=== PATIENT | female | born 1970 | race Caucasian/White ===

== ENCOUNTER 2021-04-06 21:39 | Emergency (ER) | payer OTHER, SELFPAY ==
--- NOTE | ~2021-04-06 | XR_ITS ---
EXAMINATION: XR chest 2V DATE: 04/07/2021 01:05 INDICATION: Left rib pain TECHNIQUE: PA and lateral views of the chest were obtained. COMPARISON: Chest radiograph dated 02/20/13 FINDINGS: The lungs remain clear with no focal airspace opacities, pulmonary edema, pleural effusion or pneumot horax. The cardiomediastinal silhouette is normal. Visualized bones and soft tissues are unremarkable . IMPRESSION: 1. No acute cardiopulmonary disease. Reviewed, dictated and finalized at location A.
[2021-04-06 22:11] VITALS: BP 127/84; PULSE 94; RESP 18; TEMP 36.6; O2SAT 98
[2021-04-06 22:29] LABS: Basophils Percent Auto 0.4 % (0.2-1.2); Eosinophils Absolute Auto 0.2 K/mm3 (0-0.3); Eosinophils Percent Auto 2.5 % (0-4.4); Hematocrit 40.9 % (37.0-47.0); Hemoglobin 13.3 g/dL (12.0-15.0); Immature Granulocyte Absolute 0.02 K/mm3 (0.00-0.031); Immature Granulocyte Percent A 0.3 % (0-0.5); Lymphocytes Absolute Auto 2.46 K/mm3 (0.9-3.2); Lymphocytes Percent Auto 35.8 % (18.3-44.2); Mean Corpuscular HGB Conc 32.5 g/dl (32-36); Mean Corpuscular Hemoglobin 27.4 pg (26-34); Mean Corpuscular Volume 84.3 fl (80-100); Mean Platelet Volume 9.2 fl (7.4-10.4); Monocytes Absolute Auto 0.3 K/mm3 (0.1-0.6); Monocytes Percent Auto 4.7 % (2.6-8.5); Neutrophils Absolute Auto 3.9 K/mm3 (1.3-6.7); Neutrophils Percent Auto 56.3 % (45.5-73.1); Platelet Count Result 324 k/mm3 (150-375); Red Blood Count 4.85 M/mm3 (4.2-5.4); Red Cell Distribution Width 12.9 % (11.5-14.5); White Blood Count 6.9 K/mm3 (4.5-10.0)
[2021-04-06 22:45] LABS: Alanine Aminotransferase 21 U/L (4-35); Albumin Level 4.4 g/dL (3.5-5.1); Alkaline Phosphatase 69 U/L (38-126); Anion Gap 10 mmol/L (8-16); Aspartate Amino Transferase 27 U/L (14-36); Bilirubin,Total 0.4 mg/dL (0.2-1.3); Blood Urea Nitrogen 16 mg/dL (7-17); Calcium 9.9 mg/dL (8.4-10.2); Carbon Dioxide 21 mmol/L (22-30); Chloride 109 mmol/L (98-107); Estimated CRCL calculation 75 ml/min; Estimated Glomerular Filt Rate > 60; Glucose 122 mg/dL (65-105); Lipase 53 U/L (23-300); Sodium 140 mmol/L (137-145)
[2021-04-07 00:01] VITALS: BP 105/75; PULSE 94; RESP 17; O2SAT 98
--- NOTE | 2021-04-07 00:33 | ED.BACK ---
HPI - Back Pain/Injury General Chief Complaint: Back Pain/Injury Stated Complaint: flank pain several days Time Seen by Provider: 04/07/21 00:06 Source: patient Mode of arrival: ambulatory Limitations: no limitations History of Present Illness HPI Narrative: Patient is a 51-year-old female complaining of left lower lateral rib pain, 5 out of 10, sharp, worse with movement and palpation that started 3 days ago. Patient denies any chest pain, shortness of breath, cough, abdominal pain, back pain, nausea, vomiting, fever or chills. Related Data Home Medications Medication Instructions Recorded Confirmed naproxen 500 mg tablet 500 mg PO BID 01/07/21 01/07/21 Allergies Allergy/AdvReac Type Severity Reaction Status Date / Time Sulfa (Sulfonamide Allergy Mild HIVES Verified 04/07/21 00:04 Antibiotics) sulfamethoxazole Allergy Mild HIVES Verified 04/07/21 00:04 trimethoprim Allergy Mild HIVES Verified 04/07/21 00:04 amoxicillin Allergy Unknown Unknown Verified 04/07/21 00:04 Penicillins Allergy Unknown HIVES Verified 04/07/21 00:04 codeine AdvReac Mild N/V Verified 04/07/21 00:04 CODEINE (Generic Allergy) Allergy Unknown Y Uncoded 04/07/21 00:04 Review of Systems Review of Systems: All systems reviewed & are unremarkable except as noted in HPI and below Constitutional: Constitutional: Denies body ache(s), Denies chills, Denies excessive sweating, Denies fatigue, Denies fever(s), Denies headache(s), Denies lethargy, Denies malaise, Denies weakness and Denies weight loss Eyes: Eyes: Denies blurry vision, Denies change in vision and Denies loss of vision ENT: Denies dizziness, Denies ear discharge, Denies headache(s), Denies lip swelling, Denies epistaxis, Denies nasal congestion, Denies neck pain, Denies throat swelling and Denies tongue swelling Cardiovascular: Cardiovascular: Denies chest pain, Denies chest pain at rest, Denies chest pain with activity, Denies diaphoresis, Denies rapid heart rate, Denies edema, Denies irregular heart rhythm, Denies lightheadedness, Denies palpitations, Denies dyspnea and Denies dyspnea on exertion Respiratory: Respiratory: Denies chest congestion, Denies cough, Denies hemoptysis, Denies dyspnea and Denies dyspnea on exertion Gastrointestinal: Gastrointestinal: Denies abdominal pain, Denies melena, Denies hematochezia, Denies diarrhea, Denies nausea, Denies vomiting and Denies hematemesis Musculoskeletal: Musculoskeletal: Denies abnormal gait, Denies deformity, Denies joint swelling, Denies limited range of motion, Denies neck pain and Denies numbness Neurologic: Denies Abnormal speech present, Denies abnormal gait, Denies confusion, Denies dizziness, Denies headache(s), Denies focal weakness, Denies loss of vision, Denies numbness, Denies Other visual disturbances, Denies Sensory deficit (Neuro) and Denies weakness Psychiatric: Psychiatric: Denies confusion, Denies depression, Denies auditory hallucinations, Denies homicidal ideation and Denies suicidal ideation Endocrine: Endocrine: Denies cold intolerance, Denies excessive sweating, Denies fatigue, Denies heat intolerance and Denies palpitations Hematologic/Lymphatic: Hematologic/Lymphatic: Denies easy bleeding and Denies easy bruising Allergic/Immunologic: Allergic/Immunologic: Denies lip swelling, Denies throat swelling and Denies tongue swelling PMFSH Family History Family History Other Family history of arthritis Social History Social History Smoking status: Never smoker Alcohol intake: never Gender identity (if verbalized by the patient): Female Comments Past medical history: None Family history: Noncontributory Social history: Non-smoker no EtOH or drug use Exam Const: General: cooperative, healthy appearing, comfortable, no acute distress, well developed, alert and awake; No confusion Orientation/conscio
[2021-04-07 00:37] LABS: Add Urine Microscopic? YES; Appearance Urine Cloudy (Clear); Bacteria Urine Trace /hpf; Bilirubin Urine Negative (Negative); Blood Urine Negative (Negative); Color Urine Yellow (Yellow); Glucose Urine UA Negative (Negative); Ketones Urine Negative (Negative); Leukocyte Esterase Ur Negative LEU/UL (Negative); Mucus Urine Rare /lpf; Nitrate Urine Negative (Negative); Protein Urine Negative (Negative); RBC Urine 0-2 /hpf (0-2); Specific Grav Ur 1.023 (1.001-1.035); Squamous Epithelial Cell Urine Few /hpf (Few); Urobilinogen Urine Negative mg/dL (<2.0); WBC Urine 0-3 /hpf
[2021-04-07 01:25] LABS: D Dimer < 0.22 ug/mL (<0.48)
[2021-04-07 01:49] VITALS: BP 116/71; PULSE 78; RESP 15; O2SAT 99
[2021-04-07 02:19] VITALS: BP 113/63; PULSE 84; RESP 17; O2SAT 100
== END 2021-04-07 02:21 | disposition home or self-care (01) ==
PROVIDERS: Emergency Provider Emergency Medicine; PCP Family Medicine Adolescent Medicine
DX: S29.011A Strain of muscle and tendon of front wall of thorax, initial encounter (principal); X58.XXXA Exposure to other specified factors, initial encounter
CPT/HCPCS: 36415; 71046; 80053; 81001; 83690; 85025; 85380; 99283

== ENCOUNTER → 2021-07-12 07:59 | Outpatient (CLI) | payer OTHER, SELFPAY ==
[2021-07-12 17:27] LABS: SARS-CoV-2 RNA PCR Negative
== END ==
PROVIDERS: PCP Family Medicine Adolescent Medicine; Visit Provider Orthopaedic Surgery
DX: Z01.812 Encounter for preprocedural laboratory examination (principal); Z20.822 Contact with and (suspected) exposure to COVID-19
CPT/HCPCS: C9803; U0003; U0005

== ENCOUNTER 2021-07-13 12:19 | Outpatient (CLI) | payer OTHER, SELFPAY ==
--- NOTE | ~2021-07-13 | XR_ITS ---
EXAMINATION: XR ankle LT min 3V, XR foot LT min 3V DATE: 07/13/2021 12:59 INDICATION: Left foot and ankle pain TECHNIQUE: 1. Anteroposterior, mortise, additional oblique and lateral view of the left ankle were obtained. 2. Dorsoplantar, two oblique and lateral views of the left foot were obtained. COMPARISON: None. FINDINGS: Alignment of the left foot and ankle is normal. No fracture or osteochondral lesion. Mild osteoarthri tis at the first metatarsophalangeal and multiple interphalangeal joints. Moderate-sized Achilles and plantar calcaneal spurs. No ankle joint effusion. The soft tissues are unremarkable. IMPRESSION: 1. No acute osseous abnormality. 2. Degenerative skeletal changes including Achilles and plantar calcaneal spurs and mild polyarticula r osteoarthritis in the forefoot. Reviewed, dictated and finalized at location A. IMPRESSION: 1. No acute osseous abnormality. 2. 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
== END 2021-07-13 12:20 | disposition home or self-care (01) ==
PROVIDERS: PCP Family Medicine Adolescent Medicine; Visit Provider Orthopaedic Surgery
DX: M77.32 Calcaneal spur, left foot (principal); M19.072 Primary osteoarthritis, left ankle and foot
CPT/HCPCS: 73610; 73630

== ENCOUNTER 2021-07-15 01:35 | Day surgery (SDC) | payer OTHER, SELFPAY ==
[2021-07-12 09:36] VITALS: BMI 36.3
[2021-07-15] VITALS (11 sets, daily range): BP systolic 109–121; BP diastolic 53–79; PULSE 88–100; RESP 12–16; TEMP 36.8; O2SAT 92–97; BMI 36.3
--- NOTE | ~2021-07-15 | XR_ITS ---
EXAMINATION: XR surgery orthopedic DATE: 07/15/2021 17:01 INDICATION: ORIF left patella TECHNIQUE: 5 fluoroscopic images of the patella were obtained during procedure performed by Dr. Jessica page. Radiologist was not present for the imaging or procedure. The amount of fluoroscopy time used during this procedure was 1.6 minutes. COMPARISON: None. FINDINGS: Comminuted patellar fracture which is fixed with a pair of cannulated lag screws through [facility] figure 8 cerclage wire which extends over the anterior surface of the patella. Alignment appears near-anatomic with minimal residual incongruity at the 2 fracture planes involving the articular cor palma no other fractures identified. Joint space at the medial and lateral compartments appear unremark able.. IMPRESSION: 1. Near-anatomic alignment post open reduction internal fixation of a comminuted intra-articular frac ture of the patella. See procedure note for further detail. Reviewed, dictated and finalized at location A. IMPRESSION: 1. Near-anatomic alignment post open reduction internal fixation of a comminute d intra-articular fracture of the patella. See procedure note for further lucio julian
--- NOTE | 2021-07-15 07:31 | WPDHPUPDATE1 ---
History and Physical Update Update Date/Time: 07/15/21 07:31 History and Physical has been reviewed, including an updated exam of the patient. There are NO changes in the patient's condition. Risks, benefits, and alternatives have been discussed and questions answered. Patient agrees to proceed with procedure.
[2021-07-15] MEDS: LACTATED RINGERS 1,000 ML 30 ML IV CONT ×2 (13:00→17:07)
[2021-07-15] MEDS: ACETAMINOPHEN 500 MG TABLET 1000 MG PO (13:03)
--- NOTE | 2021-07-15 13:05 | WPDANESEPPF ---
Anes - Initial Pre Proc Eval Procedure: Operation Date: 07/15/21 15:00 Proposed Procedures p Open Reduction Internal Fixation Left Patella - Cristopher Cunningham MD Date/Time: 07/15/21 13:05 Surgeon: Cristopher Cunningham MD Pre Op Diagnosis: left patella fx Patient Data Age: 51 Gender: F Height: 1.6 m Weight: 93 kg Allergies Allergy/AdvReac Type Severity Reaction Status Date / Time amoxicillin Allergy Severe Hives Verified 07/15/21 12:47 COVID-19 vaccine, AZD-1222 Allergy Severe Anaphylaxis Verified 07/15/21 12:47 (AstraZ erythromycin base Allergy Severe Hives Verified 07/15/21 12:47 Sulfa (Sulfonamide Allergy Mild HIVES Verified 07/15/21 12:47 Antibiotics) sulfamethoxazole Allergy Mild HIVES Verified 07/15/21 12:47 trimethoprim Allergy Mild HIVES Verified 07/15/21 12:47 Penicillins Allergy Unknown HIVES Verified 07/15/21 12:47 codeine AdvReac Mild N/V Verified 07/15/21 12:47 Home Medications Medication Instructions Recorded Confirmed Type naproxen sodium 220 mg tablet 220 mg PO BID PRN 07/12/21 07/15/21 History oxycodone-acetaminophen 5 mg-325 1 - 2 tablet PO Q4-6H PRN #40 07/12/21 07/15/21 Rx mg tablet tablet Patient hx anesthesia problems: none Family hx anesthesia problems: none Results Review: All pre-operative results and documents have been reviewed as part of the pre-operative evaluation. [facility] Past Medical History Medical History (Updated 07/15/21 @ 13:06 by Pablo Garcia MD) Hyperlipidemia Obesity Family History Family History Other Family history of arthritis Social History Social History Smoking status: Never smoker Alcohol intake: current Alcohol use details: RARE Substance use: never Substance use type: does not use Living arrangements: with family Gender identity (if verbalized by the patient): Female Spiritual care concerns: No Anes - Eval Final PreProcedure Day of Procedure 07/15/21 13:05 Patient weight: obese Heart: regular rate and rhythm Lungs: clear to auscultation Airway: Mallampati scale class II Neurological: alert and oriented Last oral intake: >/= 8 hours ASA classification: II Emergent: no Anesthetic plan: proceed Anesthesia type and monitoring: general LMA and standard monitoring Results Review: All pre-operative results and documents have been reviewed as part of the pre-operative evaluation. Informed Consent: The patient's anesthetic plan and its attendant risks and benefits were discussed with the patient/family/POA. Questions were solicited and answers provided to the satisfaction of the patient/family/POA.
[2021-07-15] MEDS: KETOROLAC 15 MG/ML VIAL (*BKC) IV PUSH (13:07)
--- NOTE | 2021-07-15 13:44 | WPDANESPNB ---
Anes - Peripheral Nerve Block Date/Time: 07/15/21 13:44 I have discussed with the patient/family/POA the placement of a peripheral nerve block for post-operative pain management, including associated risks, benefits, complications, and side effects. Alternative methods of post-operative analgesia were detailed. Questions were solicited and answers provided to the satisfaction of the patient/family/POA. Time-Out: A pre-procedural Time-Out was completed immediately before starting the procedure and confirmed: Patient Identification, Site, Procedure, Patient Position and the Availability of Requisite Equipment. Clinical Indications: Acute post-operative pain management requested by the operative surgeon. Nerve Block Insertion Note Anes-nerve block: femoral left Needle: 22 gauge, stimulating, insulated echogenic needle. Needle length: 80 mm Technique: nerve stimulation lost at (mA) (0.45) Injectate: bupivacaine 0.5% with epi 5 mcg/ml (30cc no epi) and dexamethasone (mg) (8 mg) Observations: tolerated well Complications: none Procedure start time:: 1340 Procedure end time:: 134
--- NOTE | 2021-07-15 13:47 | SUR.PREOP ---
1347- Shave and scrub not completed in pre-op and circulating RN Janis notified patient would not tolerate prep in pre-op area due to significant pain to left knee with movement.
[2021-07-15] MEDS: ceFAZolin 2 GM/D5W 50 ML 2 GM/50 ML BAG IVPB (13:49)
[2021-07-15] MEDS: ceFAZolin SODIUM 1 GM VIAL 2 GM IV PUSH (16:47)
[2021-07-15] MEDS: ONDANSETRON INJ 4 MG/2 ML VIAL IV PUSH (17:40)
--- NOTE | 2021-07-15 17:49 | W.PM.PROC2 ---
Procedure Note - Detailed Date of Procedure 07/16/21 Pre-op Diagnosis Comminuted left patella fracture. Post-op Diagnosis same Procedure Performed ORIF left comminuted displaced patella fracture. Surgeon Cristopher Cunningham MD Solution Design And Analysis Manager Colette Rausch PA-C Anesthesia general and regional ( Femoral nerve block) Description of Procedure Preoperative antibiotics were given. A general anesthetic was administered. The knee was prepped and draped in the usual sterile fashion. A bump was placed under the hip. A tourniquet was placed on the thigh but not used. A longitudinal incision was centered over the patella. The fracture was identified and cleared of debris. The fracture fragments were carefully identified. There was a primary transverse component. The approximate middle 3rd of the patella horizontally was impacted and displaced 90?. There was a tissue bridge laterally. The large fragment was carefully rotated back into position. Biplanar fluoroscopy was used to confirm appropriate reduction and placement of provisional and final fixation. Reduction was also confirmed with manual palpation of through the medial and lateral retinaculum. The medial third of the patella surface was visible. Provisional fixation was applied with 2 K-wires. These were drilled through the inferior pole and then pulled back retrograde distally. With these 2 fragments secure, attention was turned to the proximal pole. Alignment of the fracture was made more challenging due to a frontal plane shear fracture which included the middle and distal fragments. There was another fragment laterally that was impacted. This was provisionally pinned and later bone grafted. There was also some comminution at the medial central aspect of the patella. Provisional pins were used to assist in maintaining reduction. At this point it was elected to place 2, 4.0 mm partially-threaded screws from distal to proximal. Careful measurement was performed to prevent the screws from protruding past the cortical bone. A 20 gauge wire was woven in a [id number] fashion. The tension band effect provided excellent stability of all fragments including the frontal plane fragment. The medial and lateral comminuted areas were bone grafted with allograft chips. These areas were reinforced with heavy #2 FiberWire suture. Additional #1 Vicryl sutures were placed in the medial and lateral retinaculum. Typical splitting extended from the retinaculum along the vastus lateralis and vastus medialis. Healthy bursal tissue was brought over in a sleeve over the exposed wire. The wire was carefully buried in the proximal quadriceps tendon. The wound was copiously irrigated. Closure continued with interrupted #1 Vicryl suture, running 0 Stratafix suture, and running 2-0 Stratafix suture. Steri-Strips were placed on the skin followed by a silver impregnated antibiotic occlusive dressing. Implants Synthes 4.0 cannulated screws, x2. 20 gauge wire. Allograft cancellous bone chips. Estimated Blood Loss -50.0 Drains No Packing No Pathology none sent Complications No immediate complications Condition stable Disposition PACU
[2021-07-15] MEDS: fentaNYL CITRATE INJ (*CRX) 100 MCG/2 ML VIAL 25 MCG IV PUSH (17:58)
--- NOTE | 2021-07-15 19:36 | SUR.PHASEII ---
pt meets discharge criteria and vss pt was taken off the monitor. This nurse went over discharge instructions with the patient in depth and asked if pt had any questions. Pt asked what exercises she has to be doing and the instructions said to do what she was already doing. pt said she did not know and was not given any exercises to do. This nurse informed pt to call Dr barrios office tomorrow for some specific exercise instructions. pt said she spoke with dr barrios office and they spoke with Charisse about having some physical therapy before being discharged. This nurse was not informed about any physicial therapt and there was not order for any PT this nurse informed the pt about that. pt was very upset and said that she wants to be admitted because she doesn't want to fall again. pt is very anxious and tearful. This nurse went over the instructions from the doctor in depth about how she can bare weight as tolerated on that leg and crutch training was performed by nurse Ascencio even though pt said that she has a walker and crutches at home and has used them before. Dr. barrios was called and asked about pt concerns. Nurse Ascencio was given given instructions to answer pt questions and make sure she is informed and feels comfortable going home.
== END 2021-07-15 19:55 | disposition home or self-care (01) ==
PROVIDERS: PCP Family Medicine Adolescent Medicine; Visit Provider Orthopaedic Surgery
PROC: (CPT 27524; principal; 2021-07-15 15:00)
DX: S82.042A Displaced comminuted fracture of left patella, initial encounter for closed fracture (principal); W01.0XXA Fall on same level from slipping, tripping and stumbling without subsequent striking against object, initial encounter; G89.18 Other acute postprocedural pain; E78.5 Hyperlipidemia, unspecified; E66.9 Obesity, unspecified; Z68.36 Body mass index [BMI] 36.0-36.9, adult
CPT/HCPCS: 27524; 64447; A9270; C1713; C9803; J0690; J1100; J1885; J2250; J2405; J2704; J3010; J7120; L1830; U0003; U0005

== ENCOUNTER → 2022-05-19 09:22 | Outpatient (REF) | payer OTHER, SELFPAY | LOC: ANHLAB 09:22 | PROVIDERS: PCP Family Medicine Adolescent Medicine; Visit Provider Nurse Practitioner | DX: D23.61 Other benign neoplasm of skin of right upper limb, including shoulder (principal) | CPT/HCPCS: 88305 ==

== ENCOUNTER 2022-07-10 11:51 | Emergency (ER) | payer OTHER, SELFPAY ==
--- NOTE | ~2022-07-10 | XR_ITS ---
XR knee LT 3V 07/10/2022 12:44 Indication: Left knee pain. Procedure: 3 views left knee Comparison: Comparison to multiple prior studies sequentially, with oldest reviewed study dated 07/16. Findings: Status post internal fixation of the patella. Mild osteoarthritis of the knee. No fracture, subluxation or dislocation. No significant joint effusion. Impression: 1: No acute fracture. Reviewed, dictated and finalized at location A. Impression: 1: No acute fracture.
--- NOTE | ~2022-07-10 | XR_ITS ---
XR hand LT min 3V 07/10/2022 13:18 INDICATION: Left third finger pain after fall PROCEDURE: 3 views left hand COMPARISON: No prior studies for comparison. FINDINGS: There is an age-indeterminate avulsion fracture ulnar base third proximal phalanx. Correlat e for point tenderness. No other fracture is identified. No significant soft tissue abnormality. Carp al bones within normal limits. The soft tissues appear within normal limits. No foreign bodies are i dentified. IMPRESSION: 1: Age-indeterminate avulsion fracture ulnar base left third proximal phalanx. Correlate for point te nderness. Reviewed, dictated and finalized at location A. IMPRESSION: 1: Age-indeterminate avulsion fracture ulnar base left third proximal phalanx. Correlate for point tenderness.
--- NOTE | ~2022-07-10 | CT_ITS ---
EXAMINATION: CT facial & cervical spine wo DATE: 07/10/2022 12:53 INDICATION: Status post fall. Facial injury. Neck pain. TECHNIQUE: Computed tomography (CT) of the maxillofacial region and cervical spine was performed with out intravenous contrast. The dose-length product was 454.94 mGy-cm. Automated exposure control and i terative reconstruction technique were employed. COMPARISON: None FINDINGS: MAXILLOFACIAL CT: No acute maxillofacial fracture. Orbits are intact. No nasal fracture. Mild mucosal thickening of the ethmoid and sphenoid sinuses. Zygomatic arches are normal. Mandible intact. Temporal mandibular join ts are unremarkable. No evidence for orbital blowout fracture. CERVICAL SPINE CT: Straightening of cervical lordosis. There is diffuse idiopathic skeletal hyperostosis (DISH) of the t horacic spine. Odontoid process within normal limits. No significant paraspinal soft tissue abnormali ty. Lung apices are normal. Mild degenerative disc disease at C6-7 and C7-T1. No acute fracture or tr aumatic malalignment. No evidence for perched facet. IMPRESSION: 1. No acute abnormality of the maxillofacial bones or cervical spine. Reviewed, dictated and finalized at location A.
--- NOTE | ~2022-07-10 | CT_ITS ---
EXAMINATION: CT BRAIN W/O DATE: 07/10/2022 12:53 INDICATION: Headache. Jaw pain. TECHNIQUE: Computed tomography (CT) of the head was performed without intravenous contrast. The dose- length product was 605.33 mGy-cm. COMPARISON: No prior studies for comparison. FINDINGS: Normal brain parenchymal volume for age. Normal murphy-white differentiation. No acute intrac ranial hemorrhage, infarction, mass or mass effect. No ventriculomegaly or midline shift. Midline sagittal images demonstrate a normal corpus callosum, c raniovertebral junction and sella turcica. Basilar cisterns are patent. Paranasal sinuses and mastoids are pneumatized. No depressed skull fractures. IMPRESSION: 1. No acute intracranial abnormality. Reviewed, dictated and finalized at location A.
[2022-07-10 11:54] VITALS: BP 130/85; PULSE 120; RESP 16; TEMP 36.3; O2SAT 98
--- NOTE | 2022-07-10 12:22 | ED.HEATRA ---
HPI - Head Injury General Chief complaint: Head Injury Stated complaint: fall with injury to face and lip Time Seen by Provider: 07/10/22 12:06 History of Present Illness HPI Narrative: Patient is a 52-year-old female here for evaluation of a fall with head injury earlier today. Patient states that she was walking outside when she tripped and fell face forward, landing with her face directly in the side of metal trailer. This led to a laceration on her lip and chin. She also fell forward and landed on her left knee, states has been painful ever since but has been walking. Also noting pain in her left third finger, she is left-handed. She denies any symptoms prior to the fall, she was in her usual state of health this morning. She denies any headache, visual changes, shortness of breath, chest pain. Related Data Allergies Allergy/AdvReac Type Severity Reaction Status Date / Time amoxicillin Allergy Severe Hives Verified 07/10/22 13:06 COVID-19 vaccine, AZD-1222 Allergy Severe Anaphylaxis Verified 07/10/22 13:06 (AstraZ erythromycin base Allergy Severe Hives Verified 07/10/22 13:06 Sulfa (Sulfonamide Allergy Mild HIVES Verified 07/10/22 13:06 Antibiotics) sulfamethoxazole Allergy Mild HIVES Verified 07/10/22 13:06 trimethoprim Allergy Mild HIVES Verified 07/10/22 13:06 Penicillins Allergy Unknown HIVES Verified 07/10/22 13:06 codeine AdvReac Mild N/V Verified 07/10/22 13:06 Review of Systems Review of Systems: Gen: Denies fevers or chills Eyes: Denies eye pain or visual change ENT: Denies congestion Respiratory: Denies shortness of breath or cough CV: Denies chest pain or palpitations GI: Denies abdominal pain nausea, emesis or diarrhea : denies burning, urgency, frequency or hematuria Musculoskeletal: Reports pain in her upper back/neck Neuro: Denies numbness, tingling, weakness or focal weakness Skin: reports laceration to lip and chin Except as documented, all other systems reviewed and negative [facility] Past Medical History Medical History Hyperlipidemia Obesity Overweight Surgical History Surgical History H/O bilateral breast reduction surgery History of knee surgery (~07/12/21) ORIF Lt Patella Family History Family History Other Family history of arthritis Social History Social History Smoking status: Never smoker Alcohol intake: current Alcohol use details: RARE Substance use: never Substance use type: does not use Gender identity (if verbalized by the patient): Female Spiritual care concerns: No Exam Narrative: APPEARANCE: Well appearing, no pain in distress, well-nourished. Head: Normocephalic and atraumatic. EYES: PERRLA/EOMI, conjunctivae clear NOSE: No nasal drainage EARS: External ear normal in appearance THROAT: Oropharynx is clear. Mucous membranes are moist. NECK: Supple. No adenopathy, no masses. RESPIRATORY: Airway patent, respirations nonlabored. Clear to auscultation bilaterally, no rales, rhonchi, wheezing. CARDIOVASCULAR: Regular rate and rhythm without murmurs, rubs, or gallops. ABDOMINAL: Normoactive bowel sounds. Soft, nontender, nondistended. No rebound tenderness or guarding. MUSCULOSKELETAL: tender to palpation along upper midline C spine. Extremities are warm and well-perfused. Moves all extremities well. No edema. NEURO: Normal speech. No focal neurologic deficits. SKIN: patient has a puncture wound to her chin that extends into her bottom lip with no active bleeding; does not appear to extend through and through although. there are two irregular lacerations to the wet sara border of her left lower lip with non-viable tissue present PSYCHIATRIC: Normal affect/mood. Course Consultations Consultation #1: Spoke nabeel
[2022-07-10] MEDS: TETANUS,DIPHTHERIA,AC PERTUSSIS ADULT (0.5 ML) BOOSTRIX IM (13:05)
[2022-07-10 15:05] VITALS: BP 133/77; PULSE 79; RESP 18; O2SAT 97
== END 2022-07-10 16:38 | disposition home or self-care (01) ==
PROVIDERS: Emergency Provider Emergency Medicine; PCP Family Medicine Adolescent Medicine
DX: S01.511A Laceration without foreign body of lip, initial encounter (principal); S89.92XA Unspecified injury of left lower leg, initial encounter; S69.92XA Unspecified injury of left wrist, hand and finger(s), initial encounter; Z23 Encounter for immunization; E78.5 Hyperlipidemia, unspecified; E66.9 Obesity, unspecified; W01.198A Fall on same level from slipping, tripping and stumbling with subsequent striking against other object, initial encounter
CPT/HCPCS: 70450; 70486; 72125; 73130; 73562; 90471; 90715; 99284

== ENCOUNTER 2024-01-02 16:02 | Outpatient (CLI) | payer BC, SELFPAY ==
--- NOTE | ~2024-01-02 | MM_ITS ---
EXAMINATION: MM screening mata BI w dheeraj HISTORY: Screening TECHNIQUE: Craniocaudal and mediolateral oblique 3-D tomosynthesis images were obtained and synthetic 2-D images were generated. CAD analysis was submitted and interpreted. COMPARISON: 04/14/2016 BREAST PARENCHYMAL COMPOSITION: Not dense: There are scattered areas of fibroglandular density. FINDINGS: There is no evidence of suspicious mass, calcification, or architectural distortion to sugg est malignancy in either breast. There has been no suspicious interval change. IMPRESSION: 1. No mammographic evidence of malignancy. 2. Recommend routine screening mammography in one year. BI-RADS Category 2: Benign finding(s). Reviewed, dictated and finalized at location A.
== END 2024-01-02 16:03 ==
PROVIDERS: PCP Family Medicine Adolescent Medicine; Visit Provider Obstetrics & Gynecology
DX: Z12.31 Encounter for screening mammogram for malignant neoplasm of breast (principal)
CPT/HCPCS: 77063; 77067

== ENCOUNTER 2025-01-03 14:06 | Outpatient (CLI) | payer BC, SELFPAY ==
--- NOTE | ~2025-01-03 | MM_ITS ---
EXAMINATION: MM screening mata BI w dheeraj HISTORY: Screening TECHNIQUE: Craniocaudal and mediolateral oblique 3-D tomosynthesis images were obtained and synthetic 2-D images were generated. CAD analysis was submitted and interpreted. COMPARISON: Comparison to multiple prior studies sequentially, with oldest reviewed study dated 04/14. BREAST PARENCHYMAL COMPOSITION: There are scattered areas of fibroglandular density. FINDINGS: There is no evidence of suspicious mass, calcification, or architectural distortion to sugg est malignancy in either breast. There has been no suspicious interval change. IMPRESSION: 1. No mammographic evidence of malignancy. 2. Recommend routine screening mammography in one year. BI-RADS Category 1: Negative Reviewed, dictated and finalized at location B.
== END 2025-01-03 14:07 | disposition home or self-care (01) ==
LOC: MICIMG 14:07
PROVIDERS: PCP Family Medicine Adolescent Medicine; Visit Provider Obstetrics & Gynecology
DX: Z12.31 Encounter for screening mammogram for malignant neoplasm of breast (principal)
CPT/HCPCS: 77063; 77067